=== PATIENT | male | born 1990 | race Caucasian/White ===

== ENCOUNTER 2022-11-03 15:35 | Emergency (ER) | payer MEDICAID, OTHER ==
[~2022-11-03] VITALS: Ht 175.3 cm; Wt 102.3 kg
[~2022-11-03 15:35] MED LIST: NO HOME MEDS; PETR3.5O7
[2022-11-03 15:50] VITALS: BP 129/83
[2022-11-03] MEDS ORDERED: PRED20TA PO (17:34)
[2022-11-03] MEDS ORDERED: IBUP-1986 PO (17:34)
== END 2022-11-03 17:41 | disposition home or self-care (01) ==
LOC: ER 15:36
DX: M25.572 Pain in left ankle and joints of left foot (principal); J45.909 Unspecified asthma, uncomplicated
CPT/HCPCS: 73610; 99283

== ENCOUNTER 2024-01-15 19:50 | Emergency (ER) | payer MEDICAID ==
[~2024-01-15] VITALS: Ht 175.3 cm; Wt 104.5 kg
[~2024-01-15 19:50] MED LIST changes: +IBUP-1986 PO
[2024-01-15] MEDS: TETanus/Pertussis (Acell)/Diphther VAC/PF (Tdap-Adult) 0.5ml syringe IMVAC ONE (20:38)
[2024-01-15] MEDS: LIDOcaine 1% W/epiNEPHrine 1:100,000 20ml vial SQ ONE (20:39)
[2024-01-15 21:04] VITALS: BP 134/88; PULSE 107; RESP 16; TEMP 97.9; O2SAT 97
[2024-01-15] MEDS ORDERED: CEPH-585 PO (21:05)
== END 2024-01-15 21:07 | disposition home or self-care (01) ==
LOC: ER 19:51
DX: S60.552A Superficial foreign body of left hand, initial encounter (principal); J45.909 Unspecified asthma, uncomplicated; Z79.1 Long term (current) use of non-steroidal anti-inflammatories (NSAID); Z79.899 Other long term (current) drug therapy; W01.0XXA Fall on same level from slipping, tripping and stumbling without subsequent striking against object, initial encounter; Y93.89 Activity, other specified; Y92.89 Other specified places as the place of occurrence of the external cause; Y99.8 Other external cause status
CPT/HCPCS: 90471; 90715; 99284

== ENCOUNTER 2024-09-17 08:04 | Emergency (ER) | payer MEDICAID ==
[~2024-09-17] VITALS: Ht 175.3 cm; Wt 106.4 kg
--- NOTE | 2024-09-17 08:24 | Physician Documentation ---
History of Present Illness ~ Chief Complaint: Blood in Urine Stated Complaint: BLOOD IN URINE Time Seen by MD: 08:12 Primary Medical Doctor: NONE Mode of Arrival: POV HPI 33-year-old male presents to the emergency department with the abrupt onset right lower quadrant abdominal pain with hematuria that started this morning, denies history of kidney stones in the past also denies any dysuria or fevers. Timing/Duration: hours Quality/Severity: moderate Pain Location: RLQ Radiation: none Activities at Onset: spontaneous Prior Genitourinary Problem: none Associated Symptoms: denies symptoms, hematuria; Denies: dysuria Penile Discharge: none History Of: no pertinent history Medication Reconciliation Allergies: Coded Allergies: No Known Allergies (Unverified , 09/17/24) Discontinued Medications Home Med List (No Home Medications), (Reported) Discontinued Reason: patient no longer taking Ibuprofen (Ibuprofen), 1 TAB PO Q8H Discontinued Reason: patient no longer taking Petrolat,Wht/Min Oil/Sod Chl (Artificial Tear Ointment), 3.5 GM .ROUTE QHS Discontinued Reason: patient no longer taking Past Medical History Past Medical History: No Pertinent History, Asthma Past Surgical History: no surgical history Alcohol Use: None Drug Use: none Lives with: Family Lives In: Home Occupation: employed Review of Systems Constitutional: Reports: no symptoms reported, see HPI; Denies: fever Genitourinary: Reports: see HPI, flank pain, hematuria; Denies: burning, discharge, dysuria, frequency Physical Exam Vital Signs: RN Vital Signs have been reviewed: Yes, Temperature: 97.0, Heart Rate: 111, Respiratory Rate: 13, BP: 137/77, Pulse Oximetry: 99, Weight: 106.400 Pulse Oximetry Reflects: adequate oxygenation General Appearance: alert, no apparent distress EENT: PERRL/EOMI, normal ENT inspection Respiratory: lungs clear, normal breath sounds, no respiratory distress Cardiolovascular: normal peripheral pulses, regular rate, rhythm, no edema Gastrointestinal: tenderness Penile Discharge: none Extremities: normal range of motion, non-tender, normal inspection Skin: normal color, warm/dry; No: rash Progress Results/Orders Results/Orders Orders - GISSELLE VERDUZCO DO Ct Abdomen Pelvis (09/17/24 08:13) Completed Orders - GISSELLE VERDUZCO DO Ct Abdomen Pelvis (09/17/24 08:13) Cbc/Diff (09/17/24 08:13) CMP (09/17/24 08:13) Ua With Microscopic (09/17/24 09:38) Vital Signs 09/17/24 09/17/24 09/17/24 08:06 08:14 08:23 Temp 97.0 Pulse 111 99 Resp 16 13 11 B/P (MAP) 137/77 129/85 (100) Pulse Ox 99 99 Laboratory Tests Test 09/17/24 08:33 09/17/24 09:38 White Blood Count 10.8 Red Blood Count 4.85 Hemoglobin 15.3 Hematocrit 43.1 Mean Corpuscular Volume 88.8 Mean Corpuscular Hemoglobin 31.6 H Mean Corpuscular Hemoglobin Concent 35.6 Red Cell Distribution Width 12.8 Platelet Count 286 Mean Platelet Volume 7.9 Neutrophils (%) (Auto) 81.1 H Lymphocytes (%) (Auto) 13.1 L Monocytes (%) (Auto) 4.4 Eosinophils (%) (Auto) 0.8 Basophils (%) (Auto) 0.6 Neutrophils # (Auto) 8.8 H Lymphocytes # (Auto) 1.4 Monocytes # (Auto) 0.5 Eosinophils # (Auto) 0.1 Basophils # (Auto) 0.1 CBC Comment Sodium Level 140 Potassium Level 3.9 Chloride Level 103 Carbon Dioxide Level 27.5 Anion Gap 10 Blood Urea Nitrogen 18 Creatinine 0.91 Estimated GFR/1.73 m2 > 90 BUN/Creatinine Ratio 19.8 Glucose Level 126 H Calcium Level 8.9 Total Bilirubin 0.6 Aspartate Amino Transf (AST/SGOT) 20 Alanine Aminotransferase (ALT/SGPT) 39 Alkaline Phosphatase 92 Total Protein 7.4 Albumin 4.3 Globulin 3.1 Albumin/Globulin Ratio 1.4 Chemistry Comments Urine Specimen Description Urinal Urine Color Dark yellow Urine Clarity Clear Urine pH 6.0 Urine Specific [place] <=1.005 Urine Protein Trace Urine Glucose (UA) Negative Urine Ketones Negative Urine Occult Blood Large H Urine Nitrite Negative Urine Bilirubin Negative Urine Urobilinogen 2.0 H Urine Leukocyte Esterase Negative Urine RBC Tntc Urine WBC 5-10 H Urine Squamous Epithelial Cells None seen Urine Transitional Epithelial Cells Urine Bacteria 1+ Urine Mucus None seen Volume Urine Centrifuged 10 ml Urine Comment Re-Evaluation Re-Evaluation : Progress 10:20 a.m. patient re-evaluated, pain has resolved, discuss the CT findings with a stone in the bladder and two small stones in the kidney and ureter, he will be prescribed [place] ibuprofen and Flomax recommended increase his fluids in the strain his urine to try to capture the stone for evaluation outpatient, he understood home care instructions EKG/XRAY/CT/US/VASC/MRI CT : Impression [facility] [address], [place] - [address] CAT SCAN Patient: CASIMIRO ALCOCER Medical Record: [id number] [facility] : 1990, Age: 33 Sex: Male Location: ER Patient Status: [facility] ER Service Date/Time: 09/17/24812 Ordering Physician: GISSELLE VERDUZCO DO Exam: CT ABDOMEN PELVIS CLINICAL INFORMATION: Right flank pain. Kidney stone. TECHNIQUE: Axial CT images of the abdomen and pelvis were obtained without IV contrast. Coronal and sagittal reformatted images were obtained, reviewed, and stored. Evaluation of the parenchymal organs is limited without IV contrast. Evaluation of the bowel and mesentery is limited without oral contrast. All CT scans at this medical facility are performed using dose modulation techniques as appropriate to a performed exam including the following: Automated exposure control was utilized; adjustment of the MA and/or KV according to patient size; and use of iterative reconstruction technique. CTDIvol = 33.25 mGy DLP = 1811.02 mGy-cm COMPARISON: None FINDINGS: Lung bases: Lung bases are clear. Liver: Hepatic steatosis. Biliary: No calcified gallstones or biliary ductal dilatation. Spleen: Unremarkable. Pancreas: Grossly unremarkable in its noncontrast enhanced appearance. Adrenal glands: Unremarkable. No mass. Kidneys bladder: No hydronephrosis. 1 mm nonobstructing calculus in the midpole of the right kidney. Questionable subtle punctate density in the distal right ureter just proximal to the ureterovesical junction. A tiny ureteral calculus can not be excluded. There is a 4.5 mm calculus in the left posterior bladder. Mild circumferential thickening of the bladder wall. Aorta/Vascular: No aneurysm or significant calcification. Retroperitoneum: No mass or lymphadenopathy. Bowel/mesentery: No small bowel obstruction. No free air or free fluid. Appendix is visualized and appears unremarkable. Pelvic organs: Grossly unremarkable. Abdominal wall: Slight excess fat within the inguinal canals bilaterally, possible small bilateral fat containing indirect inguinal hernias versus lipomas. Bones: No acute fracture or suspicious intraosseous lesion. IMPRESSION: 1. Punctate nonobstructing right renal calculus. Questionable punctate density in the distal right ureter just proximal to the ureterovesical junction. A tiny distal ureteral calculus can not be excluded. No associated hydronephrosis is seen. Correlate with clinical findings. 2. 4.5 mm calculus in the left posterior bladder. Possible recently passed calculus. 3. Hepatic steatosis. 4. Additional nonacute findings as described above. Electronically Signed by:VINI CSHROEDER DO Date & Time: 09/17/24912 Dictated by: VINI SCHROEDER DO Dictation date and time: 09/17/24912 Primary Care Provider: NO PRIMARY CARE PROVIDER cc: GISSELLE VERDUZCO DO ~ Heart Score: Heart Score Response (Comments) Value History N/A 0 EKG N/A 0 Age N/A 0 Risk Factors N/A 0 Troponin N/A 0 Total 0 Medical Decision Making Urinary Diff Dx:Considerations: Include: Aortic dissection, Cholelithiasis, Pancreatitis, Urolithiasis, Urinary Obstruction, Urinary retention Genital Diff Dx:Considerations: Include: Prostatitis, Urinary retention, Urethritis Departure Disposition: 01 HOME / SELF CARE / HOMELESS Impression: Primary Impression: Kidney stone Additional Impression: Hematuria Condition: Improved Additional Instructions: Please drink plenty of water, try to capture the stone to have analyzed by your primary care doctor Referrals: NO PRIMARY CARE PROVIDER (PCP) Prescriptions Ibuprofen (Ibuprofen) 600 Mg Tablet 1 TAB PO Q6H PRN for pain, #30 Prov: GISSELLE VERDUZCO DO 09/17/24 Hydrocodone Bit/Acetaminophen 5/325 MG ([place] 5/325 MG) 5 Mg/325 Mg Tablet 1-2 TAB PO Q4-6 hours PRN for pain, #16 TAB Prov: GISSELLE VERDUZCO DO 09/17/24 Tamsulosin Hcl* (Flomax*) 0.4 Mg Cap.sr.24h 0.4 MG PO DAILY, #10 CAP Prov: GISSELLE VERDUZCO DO 09/17/24 Education Educated: Patient Educated regarding: diagnosis, treatment, prognosis Signature Scribe Signature: None Attestation: Dictated by myself GISSELLE VERDUZCO DO September 17, 2024 08:23
[2024-09-17 08:54] LABS: BASOPHILS # (AUTO) 0.1 X10'3 (0-0.2); BASOPHILS % (AUTO) 0.6 % (0-1); EOSINOPHILS # (AUTO) 0.1 X10'3 (0-0.9); EOSINOPHILS % (AUTO) 0.8 % (0-6); HEMATOCRIT 43.1 % (42.0-52.0); HEMOGLOBIN 15.3 g/dl (14.0-17.9); LYMPHOCYTES # (AUTO) 1.4 X10'3 (1.1-4.8); LYMPHOCYTES % (AUTO) 13.1 % (21-51); MEAN CORPUSCULAR HEMOGLOBIN 31.6 PG (27.0-31.0); MEAN CORPUSCULAR HGB CONC 35.6 g/dL (33.0-36.5); MEAN CORPUSCULAR VOLUME 88.8 FL (78-98); MEAN PLATELET VOLUME 7.9 FL (7.4-10.4); MONOCYTES # (AUTO) 0.5 X10'3 (0-0.9); MONOCYTES % (AUTO) 4.4 % (2-12); NEUTROPHILS # (AUTO) 8.8 X10'3 (1.8-7.7); NEUTROPHILS % (AUTO) 81.1 % (42-75); PLATELET COUNT 286 X10'3 (140-440); RED BLOOD COUNT 4.85 X10'6 (4.70-6.10); RED CELL DISTRIBUTION WIDTH 12.8 % (11.5-14.5); WHITE BLOOD COUNT 10.8 X10'3 (4.5-11.0)
[2024-09-17 09:06] LABS: ALANINE AMINOTRANSFERASE 39 U/L (12-78); ALBUMIN 4.3 G/DL (3.4-5.0); ALBUMIN/GLOBULIN RATIO 1.4 (1.1-1.5); ALKALINE PHOSPHATASE 92 IU/L (46-116); ANION GAP 10 (8-16); ASPARTATE AMINO TRANSFERASE 20 U/L (10-37); BILIRUBIN,TOTAL 0.6 MG/DL (0.1-1.0); BLOOD UREA NITROGEN 18 MG/DL (7-18); BUN/CREATININE RATIO 19.8 (10.0-20.0); CALCIUM 8.9 MG/DL (8.5-10.1); CHLORIDE 103 MMOL/L (99-107); CREATININE 0.91 MG/DL (0.60-1.10); GLUCOSE 126 MG/DL (70-104); POTASSIUM 3.9 MMOL/L (3.5-5.1); SODIUM 140 MMOL/L (135-145); TOTAL CARBON DIOXIDE 27.5 MMOL/L (24-32); TOTAL PROTEIN 7.4 G/DL (6.4-8.2); eCRCL 113 ML/MIN; eGFR > 90 ML/MIN
--- NOTE | 2024-09-17 09:15 | RADIOLOGY REPORT ---
CLINICAL INFORMATION: Right flank pain. Kidney stone. TECHNIQUE: Axial CT images of the abdomen and pelvis were obtained without IV contrast. Coronal and s agittal reformatted images were obtained, reviewed, and stored. Evaluation of the parenchymal organs is limited without IV contrast. Evaluation of the bowel and mesentery is limited without oral contras t. All CT scans at this medical facility are performed using dose modulation techniques as appropriat e to a performed exam including the following: Automated exposure control was utilized; adjustment of the MA and/or KV according to patient size; and use of iterative reconstruction technique. CTDIvol = 33.25 mGy DLP = 1811.02 mGy-cm COMPARISON: None FINDINGS: Lung bases: Lung bases are clear. Liver: Hepatic steatosis. Biliary: No calcified gallstones or biliary ductal dilatation. Spleen: Unremarkable. Pancreas: Grossly unremarkable in its noncontrast enhanced appearance. Adrenal glands: Unremarkable. No mass. Kidneys bladder: No hydronephrosis. 1 mm nonobstructing calculus in the midpole of the right kidney. Questionable subtle punctate density in the distal right ureter just proximal to the ureterovesical j unction. A tiny ureteral calculus can not be excluded. There is a 4.5 mm calculus in the left posteri or bladder. Mild circumferential thickening of the bladder wall. Aorta/Vascular: No aneurysm or significant calcification. Retroperitoneum: No mass or lymphadenopathy. Bowel/mesentery: No small bowel obstruction. No free air or free fluid. Appendix is visualized and ap pears unremarkable. Pelvic organs: Grossly unremarkable. Abdominal wall: Slight excess fat within the inguinal canals bilaterally, possible small bilateral fa t containing indirect inguinal hernias versus lipomas. Bones: No acute fracture or suspicious intraosseous lesion. IMPRESSION: 1. Punctate nonobstructing right renal calculus. Questionable punctate density in the distal right u reter just proximal to the ureterovesical junction. A tiny distal ureteral calculus can not be exclud ed. No associated hydronephrosis is seen. Correlate with clinical findings. 2. 4.5 mm calculus in the left posterior bladder. Possible recently passed calculus. 3. Hepatic steatosis. 4. Additional nonacute findings as described above.
[2024-09-17 09:53] LABS: BILIRUBIN,URINE NEGATIVE (Neg); CLARITY,URINE CLEAR (Clear); GLUCOSE, URINE NEGATIVE (Neg); KETONES,URINE NEGATIVE (Neg); LEUKOCYTE ESTERASE ,URINE NEGATIVE (Neg); OCCULT BLOOD,URINE LARGE (Neg); PROTEIN,URINE TRACE mg/dl (Neg)
[2024-09-17 09:56] LABS: UA COLLECTION TYPE URINAL
[2024-09-17 09:57] LABS: COLOR,URINE DARK YELLOW (Yellow); NITRITES, URINE NEGATIVE (Neg)
[2024-09-17 09:59] LABS: BACTERIA,URINE 1+ /HPF (Neg); MUCUS STRANDS NONE SEEN /LPF (Neg); RBC,URINE TNTC /HPF (0-2); SQUAMOUS EPITHELIAL CELL,UR NONE SEEN /LPF (FEW)
[2024-09-17] MEDS ORDERED: IBUP-1985 PO (10:25)
[2024-09-17] MEDS ORDERED: TAMS-55 PO (10:25)
[2024-09-17] MEDS ORDERED: HYDR-3965 PO (10:25)
[2024-09-17 10:45] VITALS: BP 122/80; PULSE 82; RESP 20; TEMP 98; O2SAT 98
== END 2024-09-17 10:48 | disposition home or self-care (01) ==
LOC: ER 08:05
DX: N20.0 Calculus of kidney (principal); R31.9 Hematuria, unspecified
CPT/HCPCS: 36415; 74176; 80053; 81001; 85025; 99284